=== PATIENT | female | born 1935 | race Caucasian/White ===

== ENCOUNTER 2017-02-22 11:44 | Emergency (ER) | payer OTHER ==
[~2017-02-22] VITALS: Ht 154.9 cm; Wt 62.8 kg
[~2017-02-22 11:44] MED LIST: LISI-363 PO; RANI150 PO; WARF4 PO
[2017-02-22 11:49] VITALS: BP 163/79; PULSE 84; RESP 16; TEMP 98.1; O2SAT 97
[2017-02-22] MEDS ORDERED: LISI-515 PO (14:19)
[2017-02-22] MEDS ORDERED: RANI150T PO (14:20)
[2017-02-22] MEDS ORDERED: WARF-20 PO (14:21)
[2017-02-22 14:32] LABS: BLOOD, URINE SMALL (NEG); GLUCOSE,URINE NEG (NEG); KETONE, URINE NEG (NEG); NITRITE,URINE NEG (NEG); PH, URINE 5.5 (5.0-8.5)
--- NOTE | 2017-02-22 14:33 | PD ---
HPI Chief Complaint: Dizziness Time Seen by Provider: 14:05 Travel History International Travel<30 days: No Contact w/Intl Traveler<30days: No Traveled to known affect area: No History of Present Illness HPI This 81-year-old woman who presents to the emergency department complaining of ongoing dizzy spells for the past week or so. She states she's been having intermittent episodes, several times a day, lasting anywhere from a few minutes to one to 2 hours, associated with lightheadedness. Denies vertigo symptoms, or near syncope symptoms. She states that it does cause her to have to sit down but she has not fallen. She's never really had similar symptoms before. She states during this time she's also has some occasional chest pain shortness of breath. The chest pain trouble breathing or not temporally related to the dizzy spells. She otherwise has been feeling well. No URI symptoms. No nausea or vomiting. No UTI symptoms. She denies any other new or worsening symptoms. She denies any past medical history. Does not take any medications regularly. Medical record shows a history of A. fib and hypertension. History Past Medical History Narrative Medical Patient denies any medical history, records show a history of A. fib, hypertension, renal cancer, diverticulitis, and GERD Social History Alcohol Use: No Tobacco Use: No Allergies-Medications (Allergen,Severity, Reaction): Coded Allergies: Iodine (Verified Allergy, Severe, SEVERE SWELLING, 02/22/17) Penicillin (Verified Adverse Reaction, Severe, PT. UNSURE OF REACTION; SWELLING OR SICK, 02/22/17) Reported Meds & Prescriptions Reported Meds & Active Scripts Active Reported Warfarin 4 Mg Tab 4 Mg PO DAILY Ranitidine (Ranitidine HCl) 150 Mg Tab 150 Mg PO HS Lisinopril 20 Mg Tab 20 Mg PO DAILY Review of Systems Except as stated in HPI: all other systems reviewed are Neg Physical Exam Narrative GENERAL: Well-appearing 81 year-old woman, no acute distress. SKIN: Warm and dry. HEAD: Atraumatic. Normocephalic. EYES: Pupils equal and round. No scleral icterus. No injection or drainage. ENT: No nasal bleeding or discharge. Mucous membranes pink and moist. NECK: Trachea midline. No JVD. CARDIOVASCULAR: Regular rate and rhythm. No murmur appreciated. RESPIRATORY: No accessory muscle use. Clear to auscultation. Breath sounds equal bilaterally. GASTROINTESTINAL: Abdomen soft, non-tender, nondistended. Hepatic and splenic margins not palpable. MUSCULOSKELETAL: No obvious deformities. No clubbing. No cyanosis. No edema. NEUROLOGICAL: Awake and alert. She had displayed a little bit of confusion and her answers for her often. No obvious cranial nerve deficits. Motor grossly within normal limits. Normal speech. Normal finger to nose. Normal gait. Data Data Last Documented VS Vital Signs Date Time Temp Pulse Resp B/P Pulse Ox O2 Delivery O2 Flow Rate FiO2 02/22/17 14:32 88 16 100 Room Air 02/22/17 11:49 98.1 163/79 Orders Complete Blood Count With Diff (02/22/17 14:17) Comprehensive Metabolic Panel (02/22/17 14:17) Ua Includes Microscopic (02/22/17 14:17) Troponin I (02/22/17 14:17) Electrocardiogram (02/22/17 ) Chest, Pa & Lat (02/22/17 ) Labs Laboratory Tests Test 02/22/17 02/22/17 14:26 14:53 Urine Collection Type CLEAN CATCH Urine Color STRAW Urine Turbidity CL Urine pH 5.5 Urine Specific [place] 1.005 Urine Protein NEG mg/dL Urine Glucose (UA) NEG mg/dL Urine Ketones NEG mg/dL Urine Occult Blood SMALL Urine Nitrite NEG Urine Bilirubin NEG Urine Leukocyte Esterase LARGE Urine RBC 4-9 /hpf Urine WBC 25-49 /hpf Urine WBC Clumps FEW Urine Squamous Epithelial 0-5 /hpf Cells Urine Collection Time 14:26 White Blood Count 10.1 TH/MM3 Red Blood Count 4.45 MIL/MM3 Hemoglobin 13.2 GM/DL Hematocrit 38.5 % Mean Corpuscular Volume 86.4 FL Mean Corpuscular Hemoglobin 29.6 PG Mean Corpuscular Hemoglobin 34.3 % Concent Red Cell Distribution Width 13.2 % Platelet Count 198 TH/MM3 Mean Platelet Volume 9.0 FL Neutrophils (%) (Auto) 70.9 % Lymphocytes (%) (Auto) 20.4 % Monocytes (%) (Auto) 6.1 % Eosinophils (%) (Auto) 1.5 % Basophils (%) (Auto) 1.1 % Neutrophils # (Auto) 7.1 TH/MM3 Lymphocytes # (Auto) 2.1 TH/MM3 Monocytes # (Auto) 0.6 TH/MM3 Eosinophils # (Auto) 0.2 TH/MM3 Basophils # (Auto) 0.1 TH/MM3 CBC Comment DIFF FINAL Differential Comment Sodium Level 137 MEQ/L Potassium Level 3.3 MEQ/L Chloride Level 98 MEQ/L Carbon Dioxide Level 30.4 MEQ/L Anion Gap 9 MEQ/L Blood Urea Nitrogen 17 MG/DL Creatinine 1.20 MG/DL Estimat Glomerular Filtration 43 ML/MIN Rate Random Glucose 108 MG/DL Calcium Level 9.2 MG/DL Total Bilirubin 0.6 MG/DL Aspartate Amino Transf 15 U/L (AST/SGOT) Alanine Aminotransferase 16 U/L (ALT/SGPT) Alkaline Phosphatase 97 U/L Troponin I LESS THAN 0.02 NG/ML Total Protein 7.6 GM/DL Albumin 3.9 GM/DL [facility] Medical Decision Making Medical Screen Exam Complete: Yes Emergency Medical Condition: Yes Interpretation(s) My review of EKG: Atrial fibrillation at a rate of 61, normal axis, some nonspecific inferolateral ST changes. No definite evidence of acute ischemia. LABS: UA with moderate pyuria CBC is unremarkable. CMP is remarkable for mildly evident creatinine Troponin negative Differential Diagnosis Weakness, dizziness, anemia, UTI, electrolyte abnormality, other Narrative Course Medical decision making Is a well 81-year-old woman who presents emergency Department with fairly nondescript episodes of intermittent lightheadedness. She looks great. She is a normal exam. She states she has some trouble breathing and chest discomfort has been associated with this. It doesn't seem to be related timewise tinea the episodes. The time of onset of these episodes is really unclear, it seems longer than a week. She doesn't give most of her history for herself and her relates it so it's unclear how accurate it is. Nonetheless she looks fantastic now, we'll check screening labs UA x-ray and EKG. Likely recommend outpatient follow-up with her primary physician. Diagnosis Primary Impression: Dizziness Additional Impressions: Weakness UTI (urinary tract infection) Qualified Code: N30.00 - Acute cystitis without hematuria Additional Instructions: Take Keflex as prescribed. Follow-up with your primary doctor in the next 2-4 days. Return to the emergency department for any new or worsening symptoms. Med/Other Pt SpecificInfo: Prescription(s) given Scripts Cephalexin (Keflex)500 Mg [id number] Mg PO Q8H 7 Days Ref 0 Prov:Blayne Mckeon MD 02/22/17 Disposition: 01 DISCHARGE HOME Condition: Stable Blayne Mckeon MD Feb 22, 2017 14:33
[2017-02-22 14:36] LABS: METHOD OF COLLECTION CLEAN CATCH; URINE COLOR STRAW (YELLW/STRAW)
[2017-02-22 14:37] LABS: SQUAMOUS EPITHELIAL CELL URINE 0-5 /hpf (0-5)
--- NOTE | 2017-02-22 15:18 | RADHPO ---
EXAM DATE/TIME: 02/22/2017 15:02 [facility] COMPARISON: CHEST SINGLE AP, September 23, 2016, 9:46. INDICATIONS : Syncope. MEDICAL HISTORY : None. SURGICAL HISTORY : None. ENCOUNTER: Initial ACUITY: 1 month PAIN SCORE: 2/10 LOCATION: Bilateral chest FINDINGS: PA and lateral views of the chest demonstrate the lungs to be symmetrically aerated without evidence of mass, infiltrate or effusion. There are mild chronic appearing interstitial changes. The cardiome diastinal contours are unremarkable. Osseous structures demonstrate mild degenerative changes within the thoracic spine. CONCLUSION: 1. No acute cardiopulmonary findings. Jimmy Easley MD on February 22, 2017 at 15:16 Board Certified Radiologist. This report was verified electronically.
[2017-02-22 15:25] LABS: CHLORIDE 98 MEQ/L (98-107); POTASSIUM 3.3 MEQ/L (3.5-5.1); SODIUM (NA) 137 MEQ/L (136-145)
[2017-02-22 15:28] LABS: ANION GAP 9 MEQ/L (5-15); BICARBONATE 30.4 MEQ/L (21.0-32.0)
[2017-02-22 15:29] LABS: BLOOD UREA NITROGEN 17 MG/DL (7-18)
[2017-02-22 15:32] LABS: ALT (GPT) 16 U/L (10-53); AST (GOT) 15 U/L (15-37); AUTOMATED NEUTROPHIL # 7.1 TH/MM3 (1.8-7.7); BASOPHIL # 0.1 TH/MM3 (0-0.2); BASOPHIL % 1.1 % (0.0-2.0); EOSINOPHIL # 0.2 TH/MM3 (0-0.4); EOSINOPHIL % 1.5 % (0.0-4.0); GLOMERULAR FILTRATION RATE 43 ML/MIN (>89); HEMATOCRIT 38.5 % (35.0-46.0); HEMO FLAGS DIFF FINAL; LYMPH % 20.4 % (9.0-44.0); LYMPHOCYTE # 2.1 TH/MM3 (1.0-4.8); MEAN CELL VOLUME 86.4 FL (80.0-100.0); MEAN CORPUSCULAR HEMOGLOBIN 29.6 PG (27.0-34.0); MEAN CORPUSCULAR HGB CONC 34.3 % (32.0-36.0); MONO % 6.1 % (0.0-8.0); NEUT % 70.9 % (16.0-70.0); PLATELET COUNT 198 TH/MM3 (150-450); RED BLOOD COUNT 4.45 MIL/MM3 (4.00-5.30); RED CELL DISTRIBUTION WIDTH 13.2 % (11.6-17.2); WHITE BLOOD COUNT 10.1 TH/MM3 (4.0-11.0)
[2017-02-22 15:33] LABS: TOTAL BILIRUBIN ADULT 0.6 MG/DL (0.2-1.0)
[2017-02-22 15:35] LABS: ALKALINE PHOSPHATASE 97 U/L (45-117)
[2017-02-22] MEDS ORDERED: CEPH-460 PO (15:45)
[2017-02-22 15:50] VITALS: BP 155/79; PULSE 72; RESP 16; O2SAT 99
--- NOTE | 2017-02-23 16:22 | EKG ---
Date Performed: 02/22/2017 Time Performed: 14:30:46 PTAGE: 81 years EKG: Atrial fibrillation Extensive ST-T changes are nonspecific Since previous tracing, no signi ficant change noted Abnormal ECG PREVIOUS TRACING : 09/23/2016 16.08 DOCTOR: Elio Weinstein Interpretating Date/Time 02/23/2017 16:20:24
== END 2017-02-22 16:16 | disposition home or self-care (01) ==
LOC: PHED 11:44
DX: R42 Dizziness and giddiness (principal); R53.1 Weakness; N39.0 Urinary tract infection, site not specified; I48.91 Unspecified atrial fibrillation; I10 Essential (primary) hypertension
CPT/HCPCS: 71020; 80053; 81001; 84484; 85025; 93005

== ENCOUNTER 2017-06-17 08:38 | Emergency (ER) | payer OTHER ==
[~2017-06-17] VITALS: Ht 160 cm; Wt 65.4 kg
[~2017-06-17 08:38] MED LIST changes: +CEPH-460 PO; -LISI-363 PO; +LISI-515 PO; -RANI150 PO; +RANI150T PO; +WARF-20 PO; -WARF4 PO
[2017-06-17 08:43] VITALS: BP 142/98; PULSE 74; RESP 14; TEMP 98.2; O2SAT 98
[2017-06-17] MEDS ORDERED: METO25TA3 PO (08:59)
--- NOTE | 2017-06-17 09:07 | PD ---
HPI Chief Complaint: Edema Time Seen by Provider: 08:56 Travel History International Travel<30 days: No Contact w/Intl Traveler<30days: No Traveled to known affect area: No History of Present Illness HPI This 81-year-old female is brought for evaluation of ankle edema. Both legs have been swollen for several days. She says she is not short of breath. She does have a history of hypertension, atrial fibrillation. She has mitral and tricuspid regurgitation. She has been on Coumadin in the past though we think her only medication at present is metoprolol twice daily. 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 She does not have complaint of shortness of breath PFSH Past Medical History Hx Anticoagulant Therapy: Yes Arthritis: Yes Atrial Fibrillation: Yes Heart Rhythm Problems: Yes (a fib) Cancer: Yes (KIDNEY CA.) Cardiovascular Problems: Yes (A FIB) High Cholesterol: No Chemotherapy: No Chest Pain: Yes Diabetes: No Diminished Hearing: No Endocrine: No Gastrointestinal Disorders: Yes (OCCAS. ACID REFLUX) GERD: Yes Genitourinary: Yes (RENAL MASS) Hepatitis: No Hiatal Hernia: No Hypertension: Yes Immune Disorder: No Implanted Vascular Access Dvce: Yes Musculoskeletal: Yes (ARTHRITIS) Neurologic: No Psychiatric: No Respiratory: No Immunizations Current: Yes Thyroid Disease: No Tetanus Vaccination: < 5 Years ?: Not Past Surgical History Abdominal Surgery: Yes (LEFT NEPHRECTOMY, APPENDECTOMY) Appendectomy: Yes Body Medical Devices: BLADDER MESH Cholecystectomy: Yes Genitourinary Surgery: Yes (BLADDER MESH ) Hysterectomy: Yes Other Surgery: Yes (LEFT NEPHRECTOMY r/t cancer in 2015) Social History Alcohol Use: No Tobacco Use: No Substance Use: No Allergies-Medications (Allergen,Severity, Reaction): Coded Allergies: Iodine (Verified Allergy, Severe, SEVERE SWELLING, 06/17/17) Penicillin (Verified Adverse Reaction, Severe, PT. UNSURE OF REACTION; SWELLING OR SICK, 06/17/17) Reported Meds & Prescriptions Reported Meds & Active Scripts Active Reported Metoprolol Tartrate Unknown Strength Tab Unknown Dose PO BID Review of Systems General / Constitutional: No: Fever, Chills Eyes: No: Diploplia HENT: No: Headaches Cardiovascular: Positive: Edema, No: Chest Pain or Discomfort, Palpitations Respiratory: No: Cough, Shortness of Breath Gastrointestinal: No: Vomiting, Diarrhea Genitourinary: No: Urgency Skin: No Rash, No Itching Neurologic: No: Weakness, Dizziness Endocrine: No: Heat Intolerance, Cold Intolerance Hematologic/Lymphatic: No: Easy Bruising Physical Exam Narrative GENERAL well-developed female SKIN: Focused skin assessment warm/dry. HEAD: Atraumatic. Normocephalic. EYES: Pupils equal and round. No scleral icterus. No injection or drainage. ENT: No nasal bleeding or discharge. Mucous membranes pink and moist. NECK: Trachea midline. CARDIOVASCULAR: Irregular rate and rhythm. No murmur appreciated. RESPIRATORY: No accessory muscle use. Clear to auscultation. Breath sounds equal bilaterally. GASTROINTESTINAL: Abdomen soft, non-tender, nondistended. Hepatic and splenic margins not palpable. MUSCULOSKELETAL: No obvious deformities. No clubbing. No cyanosis. Bilateral pedal edema NEUROLOGICAL: Awake and alert. No obvious cranial nerve deficits. Motor grossly within normal limits. Normal speech. PSYCHIATRIC: Appropriate mood and affect; insight and judgment normal. Data Data Last Documented VS Vital Signs Date Time Temp Pulse Resp B/P Pulse Ox O2 Delivery O2 Flow Rate FiO2 06/17/17 10:39 61 16 150/84 95 Room Air 06/17/17 08:43 98.2 Orders Electrocardiogram (06/17/17 09:04) Complete Blood Count With Diff (06/17/17 09:04) Comprehensive Metabolic Panel (06/17/17 09:04) B-Type Natriuretic Peptide (06/17/17 09:04) Urinalysis - C+S If Indicated (06/17/17 09:04) Chest, Single Ap (06/17/17 09:04) Prothrombin Time / Inr (Pt) (06/17/17 09:07) Act Partial Throm Time (Ptt) (06/17/17 09:07) Urine Culture (06/17/17 10:00) Potassium Chloride (Kcl) (06/17/17 10:30) Labs Laboratory Tests Test 06/17/17 10:00 White Blood Count 7.2 TH/MM3 Red Blood Count 3.65 MIL/MM3 Hemoglobin 11.0 GM/DL Hematocrit 33.5 % Mean Corpuscular Volume 91.8 FL Mean Corpuscular Hemoglobin 30.1 PG Mean Corpuscular Hemoglobin 32.8 % Concent Red Cell Distribution Width 12.7 % Platelet Count 199 TH/MM3 Mean Platelet Volume 9.1 FL Neutrophils (%) (Auto) 68.7 % Lymphocytes (%) (Auto) 19.2 % Monocytes (%) (Auto) 6.0 % Eosinophils (%) (Auto) 3.6 % Basophils (%) (Auto) 2.5 % Neutrophils # (Auto) 4.9 TH/MM3 Lymphocytes # (Auto) 1.4 TH/MM3 Monocytes # (Auto) 0.4 TH/MM3 Eosinophils # (Auto) 0.3 TH/MM3 Basophils # (Auto) 0.2 TH/MM3 CBC Comment DIFF FINAL Differential Comment Prothrombin Time 11.8 SEC Prothromb Time International 1.1 RATIO Ratio Activated Partial 25.3 SEC Thromboplast Time Urine Collection Type CLEAN CATCH Urine Color YELLOW Urine Turbidity CLEAR Urine pH 6.0 Urine Specific [place] 1.006 Urine Protein NEG mg/dL Urine Glucose (UA) NEG mg/dL Urine Ketones NEG mg/dL Urine Occult Blood TRACE Urine Nitrite NEG Urine Bilirubin NEG Urine Leukocyte Esterase TRACE Urine RBC 0-3 /hpf Urine WBC 9-14 /hpf Urine WBC Clumps FEW Urine Squamous Epithelial 0-5 /hpf Cells Urine Amorphous Sediment FEW Urine Bacteria MOD /hpf Microscopic Urinalysis Comment CULTURE INDICATED Urine Collection Time 1000 Sodium Level 144 MEQ/L Potassium Level 3.4 MEQ/L Chloride Level 109 MEQ/L Carbon Dioxide Level 28.8 MEQ/L Anion Gap 6 MEQ/L Blood Urea Nitrogen 17 MG/DL Creatinine 1.10 MG/DL Estimat Glomerular Filtration 48 ML/MIN Rate Random Glucose 83 MG/DL Calcium Level 8.4 MG/DL Total Bilirubin 0.5 MG/DL Aspartate Amino Transf 30 U/L (AST/SGOT) Alanine Aminotransferase 32 U/L (ALT/SGPT) Alkaline Phosphatase 90 U/L B-Type Natriuretic Peptide 455 PG/ML Total Protein 6.8 GM/DL Albumin 3.3 GM/DL [facility] Medical Decision Making Medical Screen Exam Complete: Yes Emergency Medical Condition: Yes Medical Record Reviewed: Yes Differential Diagnosis Differential includes CHF, pedal edema, Narrative Course Potassium is slightly low at 3.4. Her BNP is 455. Chest x-ray shows some mild interstitial prominence. I believe the edema secondary to congestive heart failure. I will start her on Lasix 20 mg and potassium. She also has a mild UTI for which I'll give her 7 days of Keflex Diagnosis Primary Impression: Congestive heart failure Qualified Code: I50.9 - Chronic congestive heart failure, unspecified congestive heart failure type Additional Impression: UTI (urinary tract infection) Qualified Code: N30.00 - Acute cystitis without hematuria Scripts Cephalexin (Keflex)500 Mg [id number] Mg PO Q6H #28 CAP Ref 0 Prov:Gerald Azevedo MD 06/17/17 Potassium Chloride ER 8 Meq Tab8 Meq PO DAILY #30 TAB Ref 0 Prov:Gerald Azevedo MD 06/17/17 Furosemide (Lasix)20 Mg Tab20 Mg PO DAILY #30 TAB Ref 0 Prov:Gerald Azevedo MD 06/17/17 Disposition: 01 DISCHARGE HOME Condition: Stable Gerald Azevedo MD Jun 17, 2017 09:07
--- NOTE | 2017-06-17 09:40 | RADRPT ---
EXAM DATE/TIME: 06/17/2017 09:34 [facility] COMPARISON: CHEST SINGLE AP, September 23, 2016, 9:46. CHEST PA & LAT, February 22, 2017, 15:02. INDICATIONS : Short of breath, bilateral lower extremity swelling. MEDICAL HISTORY : None. SURGICAL HISTORY : None. ENCOUNTER: Initial ACUITY: 3 days PAIN SCORE: 0/10 LOCATION: Bilateral chest FINDINGS: A single view of the chest demonstrates the lungs to be symmetrically aerated without evidence of mas s, infiltrate or effusion. The cardiomediastinal contours are unremarkable. Osseous structures are intact. CONCLUSION: Mild diffuse pulmonary vascular prominence, unchanged. Blayne Oh MD on June 17, 2017 at 9:38 Board Certified Radiologist. This report was verified electronically.
[2017-06-17 09:49] VITALS: BP 145/87; PULSE 64; RESP 16; O2SAT 97
[2017-06-17 10:05] LABS: BLOOD, URINE TRACE (NEG); GLUCOSE,URINE NEG (NEG); KETONE, URINE NEG (NEG); NITRITE,URINE NEG (NEG)
[2017-06-17 10:09] LABS: AUTOMATED NEUTROPHIL # 4.9 TH/MM3 (1.8-7.7); BASOPHIL # 0.2 TH/MM3 (0-0.2); BASOPHIL % 2.5 % (0.0-2.0); EOSINOPHIL # 0.3 TH/MM3 (0-0.4); EOSINOPHIL % 3.6 % (0.0-4.0); HEMATOCRIT 33.5 % (35.0-46.0); HEMO FLAGS DIFF FINAL; LYMPH % 19.2 % (9.0-44.0); LYMPHOCYTE # 1.4 TH/MM3 (1.0-4.8); MEAN CELL VOLUME 91.8 FL (80.0-100.0); MEAN CORPUSCULAR HEMOGLOBIN 30.1 PG (27.0-34.0); MEAN CORPUSCULAR HGB CONC 32.8 % (32.0-36.0); NEUT % 68.7 % (16.0-70.0); PLATELET COUNT 199 TH/MM3 (150-450); RED BLOOD COUNT 3.65 MIL/MM3 (4.00-5.30); RED CELL DISTRIBUTION WIDTH 12.7 % (11.6-17.2); WHITE BLOOD COUNT 7.2 TH/MM3 (4.0-11.0)
[2017-06-17 10:16] LABS: CHLORIDE 109 MEQ/L (98-107); METHOD OF COLLECTION CLEAN CATCH; POTASSIUM 3.4 MEQ/L (3.5-5.1); SODIUM (NA) 144 MEQ/L (136-145)
[2017-06-17 10:17] LABS: URINE COLOR YELLOW (YELLW/STRAW)
[2017-06-17 10:18] LABS: BACTERIA, URINE MOD /hpf; COMMENT (UR) CULTURE INDICATED; CULTURE IF INDICATED CULTURE INDICATED; RBC, URINE 0-3 /hpf (0-3); SQUAMOUS EPITHELIAL CELL URINE 0-5 /hpf (0-5)
[2017-06-17 10:20] LABS: ANION GAP 6 MEQ/L (5-15); APTT (PATIENT) 25.3 SEC (24.3-30.1); BICARBONATE 28.8 MEQ/L (21.0-32.0); BLOOD UREA NITROGEN 17 MG/DL (7-18); INTERNATIONAL NORMALIZED RATIO 1.1 RATIO; PROTHROMBIN TIME - PATIENT 11.8 SEC (9.8-11.6)
[2017-06-17 10:23] LABS: ALT (GPT) 32 U/L (10-53); AST (GOT) 30 U/L (15-37); GLOMERULAR FILTRATION RATE 48 ML/MIN (>89)
[2017-06-17 10:24] LABS: TOTAL BILIRUBIN ADULT 0.5 MG/DL (0.2-1.0)
[2017-06-17 10:26] LABS: ALKALINE PHOSPHATASE 90 U/L (45-117)
[2017-06-17] MEDS ORDERED: POTASSIUM CHLORIDE 20 MEQ CONTROLLED RELEASE TAB PO ONE (10:30)
[2017-06-17 10:39] VITALS: BP 150/84; PULSE 61; RESP 16; O2SAT 95
[2017-06-17] MEDS ORDERED: CEPH-460 PO (10:55)
[2017-06-17] MEDS ORDERED: POTA8TAB PO (10:55)
[2017-06-17] MEDS ORDERED: FURO1TAB62 PO (10:55)
--- NOTE | 2017-06-17 19:44 | EKG ---
Date Performed: 06/17/2017 Time Performed: 09:14:27 PTAGE: 81 years EKG: ATRIAL FIBRILLATION WITH SLOW VENTRICULAR RESPONSE ABNORMAL RHYTHM ECG PREVIOUS TRACING : 02/22/2017 14.30 Since previous tracing, no significant change noted DOCTOR: Brendan Rice Interpretating Date/Time 06/17/2017 19:43:03
== END 2017-06-17 11:15 | disposition home or self-care (01) ==
LOC: PHED 08:38
DX: I50.9 Heart failure, unspecified (principal); N39.0 Urinary tract infection, site not specified; B96.1 Klebsiella pneumoniae [K. pneumoniae] as the cause of diseases classified elsewhere; I48.91 Unspecified atrial fibrillation; I11.0 Hypertensive heart disease with heart failure; K21.9 Gastro-esophageal reflux disease without esophagitis
CPT/HCPCS: 71010; 80053; 81001; 83880; 85025; 85610; 85730; 87077; 87086; 87186; 93005; 99285

== ENCOUNTER 2018-04-18 09:53 | Emergency (ER) | END 2018-04-18 13:23 | disposition home or self-care (01) | DX: K57.32 Diverticulitis of large intestine without perforation or abscess without bleeding (principal); R94.31 Abnormal electrocardiogram [ECG] [EKG]; F03.90 Unspecified dementia, unspecified severity, without behavioral disturbance, psychotic disturbance, mood disturbance, and anxiety; I10 Essential (primary) hypertension; I48.91 Unspecified atrial fibrillation; K21.9 Gastro-esophageal reflux disease without esophagitis; Z79.82 Long term (current) use of aspirin; Z87.39 Personal history of other diseases of the musculoskeletal system and connective tissue; Z87.448 Personal history of other diseases of urinary system | CPT/HCPCS: 74176; 80053; 81001; 83690; 85025; 93005; 96360; 99284; J7030 ==